=== PATIENT | female | born 1970 | race Caucasian/White ===

== ENCOUNTER 2022-11-08 09:44 | Outpatient (CLI) | payer BC ==
[2022-11-08 15:55] LABS: ALBUMIN 4.3 g/dL (3.2-5.5); ALBUMIN/GLOBULIN RATIO 1.5 (1.0-2.2); BILIRUBIN,TOTAL 0.8 mg/dL (0.2-1.0); CALCIUM 9.5 mg/dL (8.5-10.3); CREATININE 1.1 mg/dL (0.4-1.0); POTASSIUM 4.2 mmol/L (3.5-5.0); TOTAL PROTEIN 7.2 g/dL (6.7-8.2)
== END 2022-11-08 09:45 | disposition home or self-care (01) ==
LOC: LAB.S 09:44
PROVIDERS: ATTEND Internal Medicine
DX: E06.3 Autoimmune thyroiditis (principal); L65.9 Nonscarring hair loss, unspecified; K29.60 Other gastritis without bleeding; B96.81 Helicobacter pylori [H. pylori] as the cause of diseases classified elsewhere
CPT/HCPCS: 36415; 80053; 82306; 82607; 82728; 82746; 83540; 84466

== ENCOUNTER 2023-05-16 10:07 | Outpatient (CLI) | payer BC ==
[2023-05-16 15:08] LABS: % IRON SATURATION 39 % (20-50); IRON 102 ug/dL (28-170); TOTAL IRON BINDING CAPACITY 262 ug/dL (250-450); TRANSFERRIN 187 mg/dL (192-382)
[2023-05-16 15:19] LABS: FERRITIN 71.4 ng/mL (11.0-306.8)
== END 2023-05-16 10:08 | disposition home or self-care (01) ==
LOC: LAB.S 10:07
PROVIDERS: ATTEND Internal Medicine
DX: D35.1 Benign neoplasm of parathyroid gland (principal); Z13.6 Encounter for screening for cardiovascular disorders; R63.5 Abnormal weight gain; E28.319 Asymptomatic premature menopause; L65.9 Nonscarring hair loss, unspecified; E78.49 Other hyperlipidemia; K29.70 Gastritis, unspecified, without bleeding; E06.3 Autoimmune thyroiditis; J20.8 Acute bronchitis due to other specified organisms; Z87.442 Personal history of urinary calculi; M54.59 Other low back pain
CPT/HCPCS: 36415; 81599; 82306; 82607; 82728; 83540; 84466; 86003

== ENCOUNTER 2023-11-10 07:28 | Outpatient (CLI) | payer BC ==
[2023-11-10 15:06] LABS: BASOPHILS % (AUTO) 0.8 %; EOSINOPHILS # (AUTO) 0.1 10^3/uL (0.0-0.7); EOSINOPHILS % (AUTO) 1.5 %; HCT - HEMATOCRIT 40.6 % (37.0-47.0); HGB - HEMOGLOBIN 12.7 g/dL (12.0-16.0); LYMPHOCYTES # (AUTO) 2.2 10^3/uL (1.5-3.5); LYMPHOCYTES % (AUTO) 41.3 %; MEAN CORPUSCULAR HEMOGLOBIN 29.8 pg (27.0-31.0); MEAN CORPUSCULAR HGB CONC 31.3 g/dL (32.0-36.0); MEAN CORPUSCULAR VOLUME 95.3 fL (81.0-99.0); MEAN PLATELET VOLUME 9.4 fL (7.9-10.8); MONOCYTES # (AUTO) 0.4 10^3/uL (0.0-1.0); MONOCYTES % (AUTO) 8.3 %; NEUTROPHILS # (AUTO) 2.5 10^3/uL (1.5-6.6); NEUTROPHILS % (AUTO) 47.9 %; PLT - PLATELET COUNT 287 10^3/uL (130-450); RED BLOOD COUNT 4.26 10^6/uL (4.20-5.40); RED CELL DISTRIBUTION WIDTH 13.2 % (12.0-15.0); WHITE BLOOD COUNT 5.2 x10^3/uL (4.8-10.8)
[2023-11-10 17:16] LABS: ALBUMIN 4.2 g/dL (3.2-5.5); ALBUMIN/GLOBULIN RATIO 1.9 (1.0-2.2); ALKALINE PHOSPHATASE 31 IU/L (42-121); ALT ALANINE AMINOTRANSFERASE 9 IU/L (10-60); AST ASPARTATE AMINOTRANSFERASE 17 IU/L (10-42); BILIRUBIN,TOTAL 0.5 mg/dL (0.2-1.0); BUN - BLOOD UREA NITROGEN 19 mg/dL (6-20); CALCIUM 9.3 mg/dL (8.5-10.3); CARBON DIOXIDE - CO2 30 mmol/L (21-32); CHLORIDE 106 mmol/L (101-111); CHOLESTEROL 184 mg/dL; GFR - MDRD 58 (>89); GLUCOSE 82 mg/dL (74-104); HDL CHOLESTEROL 46 mg/dL; LDL CHOLESTEROL,CALCULATED 121 mg/dL; LDL/HDL RATIO 2.6 (<4.4); POTASSIUM 4.4 mmol/L (3.5-4.5); SODIUM 140 mmol/L (135-145); TOTAL PROTEIN 6.4 g/dL (6.4-8.9); TRIGLYCERIDES 87 mg/dL (48-352); VLDL CHOLESTEROL 17 mg/dL
[2023-11-10 17:22] LABS: THYROID STIMULATING HORMONE 0.81 uIU/mL (0.34-5.60)
[2023-11-10 17:29] LABS: FERRITIN 99.4 ng/mL (11.0-306.8)
== END 2023-11-10 07:29 | disposition home or self-care (01) ==
LOC: LAB.S 07:28
PROVIDERS: ATTEND Internal Medicine
DX: E06.3 Autoimmune thyroiditis (principal); Z87.442 Personal history of urinary calculi; E78.49 Other hyperlipidemia; R77.9 Abnormality of plasma protein, unspecified
CPT/HCPCS: 36415; 80053; 80061; 82306; 82607; 82728; 83721; 84439; 84443; 85025

== ENCOUNTER 2024-04-27 07:31 | Day surgery (SDC) | payer BC, OTHER ==
[~2024-04-27 07:31] MED LIST: LIDOCAINE-MPF 2% 5 ML VIAL ONE; PROPOFOL 200 MG/20 ML VIAL IVP ONE; PROPOFOL 500 MG/50 ML 500 MG/50 ML VIAL ONE
[2024-04-27] MEDS: LACTATED RINGERS 1,000 ML IV ONE (07:42)
--- NOTE | 2024-04-27 08:34 | ANESTHESIA ---
Pre-Anesthesia VS, & Labs - Diagnosis routine screening - Procedure colonoscopy Vital Signs: Temp Pulse Resp BP Pulse Ox O2 Flow Rate 36.0 C L 64 14 117/73 99 04/27/24 07:57 04/27/24 07:57 04/27/24 07:57 04/27/24 07:57 04/27/24 07:57 Height: 5 ft 6 in Weight (kg): 68.2 kg Body Mass Index: 24.3 BMI Classification: Normal - NPO >8 hours (bowel prep completed) - Is Patient ?: No Home Medications and Allergies Home Medications: Ambulatory Orders Estradiol [Estrace] 04/26/24 Levothyroxine [Synthroid] mcg PO QDAC 04/26/24 Rosuvastatin Calcium [Crestor] 04/26/24 Estradiol [Estrace] 04/26/24 Levothyroxine [Synthroid] mcg PO QDAC 04/26/24 Rosuvastatin Calcium [Crestor] 04/26/24 Allergies/Adverse Reactions: Allergies Allergy/AdvReac Type Severity Reaction Status Date / Time oxycodone AdvReac Nausea Verified 04/27/24 08:01 Anes History & Medical History - Anesthetic History Anesthesia Complications: reports: No previous complications Family history of Anesthesia Complications: Denies Family history of Malignant Hyperthermia: Denies - Medical History Cardiovascular: reports: High cholesterol Pulmonary: reports: None Gastrointestinal: reports: None Urinary: reports: None Neuro: reports: None Musculoskeletal: reports: None Endocrine/Autoimmune: reports: Other Blood Disorders: reports: None Skin: reports: None Smoking Status: Never smoker Psychosocial: reports: No issues indicated History of Cancer?: No - Surgical History General: reports: Other Gynecologic: reports: Hysterectomy, LEEP (Cervical surgery) Results - EKG Results EKG Comparison: Reviewed EKG, Normal EKG Exam General: Alert Dental: WNL Mouth Openin Fingerbreadth Neck Mobility: Normal Mallampati classification: II Thyromental Distance: 4-6 cm Respiratory: Lungs clear, Normal breath sounds, No respiratory distress, No accessory muscle use Cardiovascular: Regular rate, Normal S1, Normal S2, No murmurs Mental/Cognitive Status: Alert/Oriented X3, Normal for patient Cognitive Status: Within normal limits Plan Anesthesia Type: General Consent for Procedure(s) Verified and Reviewed: Yes Code Status: Attempt Resuscitation ASA classification: 2-Mild systemic disease Is this case an emergency?: No
--- NOTE | 2024-04-27 08:46 | HISTORY & PHYSICAL EXAMINATION ---
PMH/PSH - Past Medical History Cardiovascular: positive: High cholesterol Respiratory: positive: None Neuro: positive: None Endocrine/Autoimmune: positive: Other GI: positive: None : positive: None HEENT: positive: None Psych: positive: None Musculoskeletal: positive: None Derm: positive: None MRSA Hx?: Yes - Past Surgical History General: positive: Other /SUPERINTENDENT JOB: positive: Hysterectomy, LEEP (Cervical surgery) Social & Family Hx - Social History Smoking Status: Never smoker Meds/Allgy - Home Medications Home Medications: Ambulatory Orders Medication Instructions Recorded Confirmed Estradiol [Estrace] 04/26/24 Levothyroxine [Synthroid] mcg PO QDAC 04/26/24 Rosuvastatin Calcium [Crestor] 04/26/24 - Allergies Allergies/Adverse Reactions: Allergies Allergy/AdvReac Type Severity Reaction Status Date / Time oxycodone AdvReac Nausea Verified 04/27/24 08:01 Exam - Vital Signs Vital Signs: Vital Signs x48h Temp Pulse Resp BP Pulse Ox 04/27/24 07:57 96.8 F L 64 14 117/73 99 Impression/Plan - Problem List Problem List: Pre-op H&P I am asked to see Juju for a screening colonoscopy examination. GI symptoms: None Family history of colon cancer/polyps: Sister with polyps Personal history of colon polyps: N/A Last colonoscopy examination: N/A Anticoagulant use: None The Past Family, Social and Personal History has been reviewed with the patient. ROS Denies fevers, chills, night sweats, shortness of breath, chest pain, change in the color of skin or urine, diarrhea, constipation, hematemesis, hematochezia, headache, visual changes, muscle aches. PE VSS, Afeb HEENT: Pupils equal, round and reactive to light, sclera anicteric, normal hearing, oral mucous membranes moist and without lesions NECK: Supple without lymphadenopathy, thyromegaly or carotid bruits LUNGS: Clear to auscultation without wheezing HEART: NSR without murmurs CHEST: Equal and symmetric expansion, no rib pain ABD: Soft, nontender, no hepatosplenomegaly, no hernias GROIN: No hernias or lymphadenopathy EXTREMITIES: Normal neuro and muscular exam SKIN: Anicteric Radiologic Studies N/A Assessment: Request for a screening colonoscopy examination. Plan: Screening colonoscopy under sedation through the Day Surgery admission protocol at [facility]. Consent: Juju has been counseled for the procedure, it's indications, risks, benefits and expected outcome as well as alternative therapies. We specifically discussed risks associated with anesthesia and insertion of the endoscope into the large intestine which includes bleeding and injury to the colon which may require surgical intervention. Juju understands, agrees, and consents to the proposed operative strategy and requests that we proceed with the procedure as outlined in our discussion. Bk Chowdhury MD, [facility] General Surgery Service
[2024-04-27] MEDS ORDERED: GLYCOPYRROLATE 1 MG/5 ML VIAL ONE (10:26)
[2024-04-27] MEDS: LACTATED RINGERS 200 ML IV ONE (10:34)
[2024-04-27 11:00] VITALS: BP 107/73; O2SAT 100
--- NOTE | 2024-04-27 11:14 | ANESTHESIA POST OP EVALUATION ---
Anesthesia Post Eval - Post Anesthesia Eval Vitals: Last Vital Signs Temp 36.4 C L 04/27/24 10:56 Pulse 84 04/27/24 10:56 Resp 14 04/27/24 10:56 BP 107/73 04/27/24 10:56 Pulse Ox 100 04/27/24 10:56 O2 Flow Rate CV Function Including HR & BP: Stable Pain Control: Satisfactory Nausea & Vomiting: Negative Mental Status: Baseline Respiratory Status: Airway Patent Hydration Status: Satisfactory Anesthesia Complications: None
== END 2024-04-27 07:32 | disposition home or self-care (01) ==
LOC: SDS 07:31
PROVIDERS: ATTEND Surgery
DX: Z12.11 Encounter for screening for malignant neoplasm of colon (principal); K57.30 Diverticulosis of large intestine without perforation or abscess without bleeding; Z83.719 Family history of colon polyps, unspecified
CPT/HCPCS: 45378; J7120